=== PATIENT | male | born 1965 | race African-American/Black ===

== ENCOUNTER 2022-02-19 17:33 | Emergency (ER) | payer SELFPAY ==
[~2022-02-19] VITALS: Ht 180.3 cm; Wt 100.0 kg
[2022-02-19 17:45] VITALS: BP 148/85
[2022-02-19] MEDS ORDERED: ALBU6.7H9 IH (17:49)
[2022-02-19] MEDS ORDERED: PREDNISONE 20MG TABLET PO ONE (20:30)
[2022-02-19] MEDS ORDERED: MOME13HF2 INH (20:31)
[2022-02-19] MEDS ORDERED: ALBU05 NEB (20:31)
[2022-02-19] MEDS ORDERED: P50 MT (20:31)
== END 2022-02-19 21:08 | disposition home or self-care (01) ==
LOC: ER 17:46
DX: J45.909 Unspecified asthma, uncomplicated (principal); I49.9 Cardiac arrhythmia, unspecified
CPT/HCPCS: 93005; 99283